=== PATIENT | female | born 2000 | race African-American/Black ===

== ENCOUNTER 2020-05-05 02:12 | Emergency (ER) | payer MEDICAID, OTHER ==
[~2020-05-05] VITALS: Ht 170.2 cm; Wt 60.0 kg
[2020-05-05] MEDS ORDERED: KETOROLAC 60MG/2ML VIAL IM ONE (04:45)
[2020-05-05 05:04] VITALS: BP 127/80
== END 2020-05-05 05:04 | disposition home or self-care (01) ==
LOC: ER 02:12 → EDBD 02:12 → ER 05:04
DX: R07.89 Other chest pain (principal)
CPT/HCPCS: 71045; 96372; 99283; J1885

== ENCOUNTER 2023-09-08 14:13 | Emergency (ER) | payer MEDICAID, OTHER ==
[~2023-09-08] VITALS: Ht 172.7 cm; Wt 73.0 kg
[2023-09-08 14:17] VITALS: O2SAT 98
[2023-09-08] MEDS ORDERED: DICYCLOMINE 10 MG/5 ML ORAL SYR PO STA (14:39)
[2023-09-08 14:55] LABS: BASOPHILS % 0.3 % (0.0-2.0); EOSINOPHILS % 0.4 % (0.0-5.0); HEMATOCRIT. 38.4 % (36.0-48.0); HEMOGLOBIN. 12.5 g/dL (12.0-16.0); MEAN CORPUSCULAR HEMOGLOBIN 29.1 pg (28.0-32.0); MEAN CORPUSCULAR HGB CONC 32.5 g/dL (31.0-37.0); MEAN CORPUSCULAR VOLUME 89.4 fL (81.0-99.0); MONOCYTES % 5.2 % (2.0-8.0); NEUTROPHILS % 80.1 % (40.0-76.0); PLATELET 223 x1000/uL (130-400); RED CELL DISTRIBUTION WIDTH 12.8 % (11.6-14.6); WHITE BLOOD COUNT 10.5 x1000/uL (4.5-11.0)
[2023-09-08 15:04] LABS: ALANINE AMINOTRANSFERASE 14 IU/L (10-49); ALBUMIN 5.2 g/dL (3.2-4.8); ASPARTATE AMINOTRANSFERASE 20 IU/L (<34); BILIRUBIN TOTAL 0.6 mg/dL (0.1-1.0); CALCIUM 9.9 mg/dL (8.7-10.4); CARBON DIOXIDE 22 mEq/L (21-32); CHLORIDE 108 mEq/L (98-107); CREATININE 0.8 mg/dL (0.6-1.0); GLUCOSE 99 mg/dL (70-105); POTASSIUM 3.5 mEq/L (3.5-5.1); PROTEIN TOTAL 8.5 g/dL (6.0-8.3); SODIUM 140 mEq/L (136-145); UREA NITROGEN BLOOD 9 mg/dL (9-23)
[2023-09-08 15:11] LABS: HCG SCREEN NEGATIVE
[2023-09-08] MEDS: ONDANSETRON HCL 4MG/2ML INJ IV STA ×2 (15:18→20:02)
[2023-09-08] MEDS: SODIUM CHLORIDE 0.9% 1,000 ML IV ONE (15:18)
[2023-09-08] MEDS: FAMOTIDINE 20MG/2ML VIAL IV STA (15:18)
[2023-09-08 15:44] LABS: CLARITY URINE TURBID (CLEAR); COLOR URINE YELLOW (YELLOW); GLUCOSE URINE NEGATIVE (NEGATIVE); KETONES URINE 1+ (NEGATIVE); LEUKOCYTE ESTERASE URINE TRACE (NEGATIVE); NITRITE URINE NEGATIVE (NEGATIVE); OCCULT BLOOD URINE NEGATIVE (NEGATIVE); PH URINE >=9.0 (4.5-8.0); PROTEIN URINE NEGATIVE (NEGATIVE); SPECIFIC GRAVITY URINE 1.017 (1.005-1.030); UROBILINOGEN URINE 0.2 E.U./dL (0.2-1.0)
[2023-09-08 16:22] LABS: BACTERIA URINE 2+; RBC URINE 0-2 /hpf (0-2); SQUAMOUS EPITHELIAL CELL URINE 2+ /lpf (RARE/1+)
[2023-09-08 16:23] LABS: AMORPHOUS SEDIMENT URINE 2+ /lpf; WBC URINE 0-2 /hpf (0-2)
[2023-09-08] MEDS: HALOPERIDOL LACTATE 5MG/ML VIAL IM ONE (16:58)
[2023-09-08] MEDS: DIPHENHYDRAMINE 50MG/ML VIAL IV ONE (16:58)
[2023-09-08] MEDS: DICYCLOMINE 10 MG/5 ML ORAL SYR PO NR (17:18)
[2023-09-08] MEDS ORDERED: ONDA4TAB11 PO (17:24)
[2023-09-08] MEDS: METOCLOPRAMIDE HCL 10MG/2ML VIAL IV ONE (18:04)
[2023-09-08] MEDS: CEFTRIAXONE 1GM/50ML 50 ML IV ONE (20:02)
[2023-09-08] MEDS: KETOROLAC 30MG/ML VIAL IV STA (20:02)
[2023-09-08 21:29] VITALS: BP 121/67; PULSE 68; RESP 19; TEMP 99.9
== END 2023-09-08 21:33 | disposition home or self-care (01) ==
LOC: ER 14:13
DX: K52.89 Other specified noninfective gastroenteritis and colitis (principal)
CPT/HCPCS: 80053; 81003; 81025; 84703; 83690; 85025; 87086; 36415; 74176; 96365; 96372; 96375; 96376; 99285; J0696; J1200; J3490; J1630; J1885; J2765; J2405; J7030; Z7610 ×2

== ENCOUNTER 2024-01-18 21:32 | Emergency (ER) | payer MEDICAID ==
[~2024-01-18] VITALS: Ht 172.7 cm; Wt 73.0 kg
[~2024-01-18 21:32] MED LIST: ONDA4TAB11 PO
[2024-01-18 21:35] VITALS: BP 142/98; PULSE 108; RESP 18; O2SAT 97
[2024-01-18 22:38] VITALS: TEMP 98.5
[2024-01-18] MEDS: ACETAMINOPHEN 325MG TABLET PO ONE (22:38)
[2024-01-18] MEDS ORDERED: ACET-2708 MT (22:44)
[2024-01-18] MEDS: BACITRACIN 14GM TUBE TOP ONE (23:16)
== END 2024-01-18 23:28 | disposition home or self-care (01) ==
LOC: ER 21:32
DX: M25.532 Pain in left wrist (principal)
CPT/HCPCS: 73110; 99283; A4565

== ENCOUNTER 2025-04-27 17:08 | Emergency (ER) | payer MEDICAID ==
[~2025-04-27] VITALS: Ht 175.3 cm; Wt 73.0 kg
[~2025-04-27 17:08] MED LIST changes: +ACET-2708 MT; +ONDA-239 PO; -ONDA4TAB11 PO
[2025-04-27 17:10] VITALS: TEMP 37.5; O2SAT 100
[2025-04-27] MEDS: SODIUM CHLORIDE 0.9% 1,000 ML IV ONE (17:54)
[2025-04-27] MEDS: LEVETIRACETAM 500MG PREMIX 100 ML IV ONE (18:01)
[2025-04-27 18:17] LABS: BASOPHILS % 0.2 % (0.0-2.0); EOSINOPHILS % 15.6 % (0.0-5.0); HEMATOCRIT. 33.0 % (36.0-48.0); HEMOGLOBIN. 10.7 g/dL (12.0-16.0); LYMPHOCYTES % 21.4 % (20.0-50.0); MEAN PLATELET VOLUME 7.6 fl (7.4-10.4); MONOCYTES % 7.7 % (2.0-8.0); NEUTROPHILS % 55.1 % (40.0-76.0); PLATELET 313 x1000/uL (130-400); RED BLOOD CELL COUNT 3.62 mill/uL (4.2-5.4); RED CELL DISTRIBUTION WIDTH 12.6 % (11.6-14.6)
[2025-04-27 18:38] LABS: CREATININE 0.6 mg/dL (0.6-1.0); TROPONIN I HIGH SENSITIVITY < 4 ng/L (3.0-34); UREA NITROGEN BLOOD 11 mg/dL (9-23)
[2025-04-27 18:40] LABS: ASPARTATE AMINOTRANSFERASE 54 IU/L (<34); BILIRUBIN DIRECT 0.2 mg/dL (<=3.0); BILIRUBIN TOTAL 0.4 mg/dL (0.1-1.0); PROTEIN TOTAL 6.2 g/dL (6.0-8.3)
[2025-04-27 18:41] LABS: HCG SCREEN NEGATIVE
[2025-04-27 19:30] VITALS: BP 115/88; PULSE 70; RESP 13; O2SAT 100
[2025-04-27 19:51] LABS: *AMPHETAMINES SCREEN URINE NEGATIVE (NEGATIVE); *BARBITURATES SCREEN URINE NEGATIVE (NEGATIVE); *BENZODIAZEPINES SCREEN URINE NEGATIVE (NEGATIVE); *COCAINE SCREEN URINE NEGATIVE (NEGATIVE); CANNABINOID URINE SCREEN NEGATIVE (NEGATIVE); METHADONE URINE SCREEN NEGATIVE (NEGATIVE); OPIATES URINE SCREEN PRESUMPTIVE POSITIVE (NEGATIVE); PHENCYCLIDINE URINE SCREEN NEGATIVE (NEGATIVE)
[2025-04-27 19:52] LABS: ECSTASY MDMA SCREEN URINE NEGATIVE (NEGATIVE)
== END 2025-04-27 20:21 | disposition home or self-care (01) ==
LOC: ER 17:08 → CMPBEDREQ 04-28 07:25
DX: R56.9 Unspecified convulsions (principal); Z79.899 Other long term (current) drug therapy
CPT/HCPCS: 80076; 80305; 80048; 80320; 84703; 85025; 84484; 36415; 71045; 70450; 93005; 96365; 99285; J1953; J7030; G0480

== ENCOUNTER 2025-05-12 17:58 | Emergency (ER) | payer OTHER, MEDICAID ==
[~2025-05-12] VITALS: Ht 165.1 cm; Wt 68.0 kg
[2025-05-12 17:59] VITALS: O2SAT 99
[2025-05-12] MEDS: LORAZEPAM 1MG TABLET PO ONE (18:39)
[2025-05-12] MEDS: LEVETIRACETAM 500MG/5ML CUP PO ONE (18:39)
[2025-05-12 19:07] VITALS: BP 120/80; PULSE 77; RESP 18; TEMP 36.7; O2SAT 99
== END 2025-05-12 19:08 ==
LOC: ER 17:58
DX: F41.0 Panic disorder [episodic paroxysmal anxiety] (principal); Z02.89 Encounter for other administrative examinations; J45.909 Unspecified asthma, uncomplicated
CPT/HCPCS: 99283